=== PATIENT | male | born 1990 | race Caucasian/White ===

== ENCOUNTER 2021-03-22 11:27 | Emergency (ER) | payer SELFPAY ==
[~2021-03-22] VITALS: Ht 175.3 cm; Wt 83.0 kg
[2021-03-22] MEDS ORDERED: ONDANSETRON HCL 4MG/2ML INJ IV STA (11:54)
[2021-03-22] MEDS ORDERED: SODIUM CHLORIDE 0.9% 1,000 ML IV ONE (12:00)
[2021-03-22 12:41] LABS: BASOPHILS % 1.2 % (0.0-2.0); EOSINOPHILS % 5.2 % (0.0-5.0); HEMATOCRIT. 47.2 % (42.0-52.0); HEMOGLOBIN. 16.3 g/dL (14.0-18.0); LYMPHOCYTES % 30.9 % (20.0-50.0); MEAN CORPUSCULAR HEMOGLOBIN 30.6 pg (28.0-32.0); MEAN CORPUSCULAR VOLUME 88.7 fL (80.0-94.0); MEAN PLATELET VOLUME 8.9 fl (7.4-10.4); MONOCYTES % 7.8 % (2.0-8.0); NEUTROPHILS % 54.9 % (40.0-76.0); PLATELET 281 x1000/uL (130-400); RED BLOOD CELL COUNT 5.32 mill/uL (4.7-6.1); RED CELL DISTRIBUTION WIDTH 14.3 % (11.6-14.6)
[2021-03-22 12:44] LABS: CHLORIDE 108 mEq/L (98-107)
[2021-03-22 12:48] LABS: ETHANOL BLOOD 53 mg/dL
[2021-03-22 13:08] LABS: CLARITY URINE CLEAR (CLEAR); COLOR URINE YELLOW (YELLOW); KETONES URINE 1+ (NEGATIVE); LEUKOCYTE ESTERASE URINE NEGATIVE (NEGATIVE); NITRITE URINE NEGATIVE (NEGATIVE); OCCULT BLOOD URINE NEGATIVE (NEGATIVE); PH URINE 7.5 (4.5-8.0); PROTEIN URINE NEGATIVE (NEGATIVE); SPECIFIC GRAVITY URINE 1.018 (1.005-1.030); UROBILINOGEN URINE 0.2 E.U./dL (0.2-1.0)
[2021-03-22 13:28] LABS: *AMPHETAMINES SCREEN URINE PRESUMTIVE POSITIVE (NEGATIVE); CANNABINOID URINE SCREEN NEGATIVE (NEGATIVE); PHENCYCLIDINE URINE SCREEN NEGATIVE (NEGATIVE)
[2021-03-22 13:29] LABS: *BARBITURATES SCREEN URINE NEGATIVE (NEGATIVE); *BENZODIAZEPINES SCREEN URINE NEGATIVE (NEGATIVE); *COCAINE SCREEN URINE PRESUMTIVE POSITIVE (NEGATIVE); METHADONE URINE SCREEN NEGATIVE (NEGATIVE); OPIATES URINE SCREEN NEGATIVE (NEGATIVE)
[2021-03-22] MEDS ORDERED: LORAZEPAM 1MG TABLET PO ONE (13:45)
[2021-03-22 14:35] VITALS: BP 140/83
== END 2021-03-22 14:38 | disposition home or self-care (01) ==
LOC: ER 11:27
DX: T40.5X1A Poisoning by cocaine, accidental (unintentional), initial encounter (principal); T43.621A Poisoning by amphetamines, accidental (unintentional), initial encounter; R11.10 Vomiting, unspecified; F41.9 Anxiety disorder, unspecified; Y92.018 Other place in single-family (private) house as the place of occurrence of the external cause
CPT/HCPCS: 36415; 80053; 80305; 80320; 81003; 85025; 93005; 96361; 96374; 99284; J2405; J7030; G0480

== ENCOUNTER 2022-05-08 10:13 | Emergency (ER) | payer SELFPAY ==
[~2022-05-08] VITALS: Ht 177.8 cm; Wt 95.0 kg
[2022-05-08 10:15] VITALS: BP 144/93
[2022-05-08] MEDS ORDERED: LORAZEPAM 2MG/ML CPJ IV ONE (11:00)
== END 2022-05-08 12:50 | disposition home or self-care (01) ==
LOC: ER 10:24
DX: F14.10 Cocaine abuse, uncomplicated (principal); F10.229 Alcohol dependence with intoxication, unspecified; F41.9 Anxiety disorder, unspecified; F15.10 Other stimulant abuse, uncomplicated; Y90.0 Blood alcohol level of less than 20 mg/100 ml
CPT/HCPCS: 99283